=== PATIENT | male | born 1995 | race Caucasian/White ===

== ENCOUNTER 2016-08-03 19:18 | Emergency (ER) | payer OTHER | END 2016-08-03 20:33 | disposition home or self-care (01) | LOC: D.ER 19:18 | DX: M54.5 Low back pain (principal) ==

== ENCOUNTER 2016-08-04 17:43 | Emergency (ER) | payer OTHER | END 2016-08-04 19:20 | disposition home or self-care (01) | LOC: D.ER 17:43 | DX: T40.2X5A Adverse effect of other opioids, initial encounter (principal); Y92.019 Unspecified place in single-family (private) house as the place of occurrence of the external cause; M54.5 Low back pain ==